=== PATIENT | male | born 1980 | race Caucasian/White ===

== ENCOUNTER 2016-12-08 02:00 | Emergency (ER) | payer BC ==
[~2016-12-08] VITALS: Ht 180.3 cm; Wt 102.1 kg
[2016-12-08] MEDS ORDERED: SODIUM CHLORIDE 0.9% 2,000 ML IV ONE (02:30)
[2016-12-08 02:32] LABS: Urine Bacteria NONE SEEN /hpf (None Seen); Urine Blood Negative /uL (Negative); Urine Specific Gravity 1.001 (1.001-1.035); Urine WBC <1 /hpf (0 - 3)
[2016-12-08 02:45] LABS: Amphetamine Screen, Urine NEGATIVE (NEGATIVE); Barbiturate Scree,Urine NEGATIVE (NEGATIVE); Benzodiazephine Screen, Urine NEGATIVE (NEGATIVE); Cannabinoid Screen, Urine NEGATIVE (NEGATIVE); Cocaine Screen, Urine NEGATIVE (NEGATIVE); Opiate Scree,Urine NEGATIVE (NEGATIVE); Phencyclidine Screen, Urine NEGATIVE (NEGATIVE)
[2016-12-08] MEDS ORDERED: LORazepam 2MG/ML-1ML VIAL IV ONE (03:00)
[2016-12-08 04:30] VITALS: BP 149/85
== END 2016-12-08 06:00 | disposition home or self-care (01) ==
LOC: ER 02:03
DX: G92 Toxic encephalopathy (principal); F10.129 Alcohol abuse with intoxication, unspecified; R45.1 Restlessness and agitation
CPT/HCPCS: 80307; 81001; 93005; 94761; 96361; 96374; 99285; J2060; J7030